=== PATIENT | female | born 1980 | race African-American/Black ===

== ENCOUNTER 2019-02-05 09:08 | Emergency (ER) | payer OTHER ==
[~2019-02-05] VITALS: Ht 157.5 cm; Wt 95.3 kg
[2019-02-05 09:10] VITALS: BP 145/93
[2019-02-05] MEDS ORDERED: ORPH100T PO (09:26)
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
[2019-02-05] MEDS ORDERED: ORPHENADRINE CITRATE 60 MG/2 ML VIAL. IM ONE (09:45)
[2019-02-05] MEDS ORDERED: KETOROLAC 60 MG/2 ML VIAL. IM ONE (09:45)
== END 2019-02-05 10:12 | disposition home or self-care (01) ==
LOC: ER 09:08
DX: M54.2 Cervicalgia (principal); M54.89 Other dorsalgia; G89.11 Acute pain due to trauma; J45.909 Unspecified asthma, uncomplicated; Z91.013 Allergy to seafood; Z88.8 Allergy status to other drugs, medicaments and biological substances; V49.9XXA Car occupant (driver) (passenger) injured in unspecified traffic accident, initial encounter; Y92.488 Other paved roadways as the place of occurrence of the external cause; Y93.9 Activity, unspecified; Y99.8 Other external cause status
CPT/HCPCS: 81025; 96372; 99284; J1885; J2360